=== PATIENT | female | born 1965 | race Caucasian/White ===

== ENCOUNTER 2022-06-30 13:07 | Outpatient (CLI) | payer BC, SELFPAY ==
--- NOTE | ~2022-06-30 | US_ITS ---
EXAMINATION: US retroperitoneal comp DATE: 06/30/2022 14:19 INDICATION: Chronic cystitis TECHNIQUE: Multiple ultrasound grayscale images of the kidneys were obtained. COMPARISON: None. FINDINGS: The right kidney measures 9.1 x 4.5 x 5.0 cm. The left kidney measures 9.9 x 4.5 x 6.2 cm. The kidney s demonstrate normal echogenicity. There is no hydronephrosis in either kidney. No stones identified . The bladder is normal with calculated prevoid bladder volume of 254 mL and normal calculated postvo id bladder volume of 22 mL. IMPRESSION: 1. Normal kidneys without hydronephrosis. Reviewed, dictated and finalized at location B.
== END 2022-06-30 13:08 | disposition home or self-care (01) ==
PROVIDERS: PCP Nurse Practitioner Family; Visit Provider Nurse Practitioner Family
DX: N30.20 Other chronic cystitis without hematuria (principal)
CPT/HCPCS: 76770

== ENCOUNTER 2023-03-29 15:17 | Outpatient (CLI) | payer BC, SELFPAY ==
--- NOTE | ~2023-03-29 | US_ITS ---
EXAMINATION: US art doppler w press LE BI DATE: 03/29/2023 16:08 INDICATION: Peripheral vascular disease. TECHNIQUE: Segmental pressures and plethysmographic and Doppler waveforms of the brachial and lower e xtremity arteries were obtained. COMPARISON: None. FINDINGS: Right and left brachial artery pressures of 124 mm Hg and 130 mm Hg, respectively, are concordant (no rmal difference <= 30 mmHg). The right and left high-thigh pressure indices are 1.05 and 0.99, respec tively (normal > 1.2). The right ankle-brachial index (AFUA) is 1.00 (normal >= 0.9-1). The right great toe-brachial index (T BI) is 0.42 (normal >= 0.6-0.8). The right lower extremity segmental pressure gradients are normal (n ormal gradients <= 20-30 mmHg between adjacent levels on the same leg or the same levels on the two l egs). Arterial waveforms are triphasic at the right common femoral artery and biphasic at the more di stal arteries with brisk systolic upstrokes throughout. The left AFUA is 0.98. The left TBI is 0.42. The left lower extremity segmental pressure gradients are normal. Arterial waveforms are triphasic at the left common femoral, superficial femoral, popliteal and dorsalis pedis arteries and biphasic at the left posterior tibial artery, all with brisk systolic upstrokes. IMPRESSION: 1. Arterial occlusive disease to bilateral lower limbs with mildly decreased bilateral high thigh pre ssure indices, ABIs and TBIs. Reviewed, dictated and finalized at location A. IMPRESSION: 1. 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
== END 2023-03-29 15:18 | disposition home or self-care (01) ==
PROVIDERS: PCP Nurse Practitioner Family; Visit Provider Podiatrist Foot & Ankle Surgery
DX: I73.9 Peripheral vascular disease, unspecified (principal)
CPT/HCPCS: 93923

== ENCOUNTER 2023-06-27 16:45 | Outpatient (RCR) | payer BC, SELFPAY ==
--- NOTE | 2023-06-27 17:56 | PTOPEVAL1 ---
Assessment and note entered by Salas Medina Evaluation Information Assessment Status Evaluation Diagnosis cervicalgia Onset 12/26/22 Subjective Information Pt. reports having 6 months of on/off neck pain. She describes pain down the middle of the neck. She reports that the pain mostly stays to the neck , but occasionally will go into the shoulder blades. She reports that her pain has worsened over the past 6 months. She notices frequent popping in the neck. 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 Pt. reports that she has pain with attempting to turn her head with driving. She reports that she can have headaches with the neck pain. She reports no complication with sleep. She states that her goal for therapy is to reduce her pain and improve her movement of the head and neck. Reported Pain Level Pain Score 3: Self Report Assessment PT Clinical Summary Pt. is a 58 year old female who enters the clinic with neck pain. she presents with impaired postural awareness, impaired strength, impaired ROM and pain on this date. Continued skilled PT is indicated in order to improve these areas to allow for improved comfort with IADL's. Plan of Care Interventions Electrical Stimulation,Hot Pack/Cold Pack,Manual Therapy,Mechanical Traction,Neuro Re-education, Patient/Caregiver Educati,Therapeutic Activities, Therapeutic Exercise PT Services Indicated Yes Treatment Frequency and 2x/week x 8 visits Duration These treatments will address the objective and functional deficits as defined above. The patient will be advanced safely and appropriately in order for the patient to progress towards his/her prior level of function. Additional exercises will be introduced and as well as a comprehensive home exercise program upon discharge, if needed, ?to ensure carryover of functional gains achieved in the clinic. This treatment plan has been reviewed and agreement upon by the patient.
--- NOTE | 2023-06-27 17:57 | OPREHPOC ---
Outpatient Therapy Plan of Care This is a Multidisciplinary Plan of Care that may contain components documented by all disciplines (PT, OT, and ST.) PT Problem 1 PT Problem #1 Knowledge Deficit PT Goal 1 Goal Independent with a HEP addressing c-spine ROM and postural awareness Target Visit 2 PT Problem 2 PT Problem #2 Impaired Range of Motion PT Goal 1 Goal Increase right rotation to 80 degrees at the c- spine and lateral flexion to the right to 40 degrees to improve visual field. Target Visit 8 PT Problem 3 PT Problem #3 Pain PT Goal 1 Goal Pt. will report pain levels at 2/10 at worst over a 2 week period. Target Visit 8 PT Problem 4 PT Problem #4 Impaired Strength PT Goal 1 Goal Increase lower trap strength to 4+/5 to improve postural awareness PT Problem 5 PT Problem #5 Impaired Functional Mobil PT Goal 1 Goal Pt. will present with less than 5% limitation on the NDI.
--- NOTE | 2024-04-10 15:37 | PCPTNOTE ---
Pt. attended her initial evaluation on 06/27/23. She failed to return to the clinic following initial evaluation and will be discharged from our care. Salas Medina, MPT
== END 2023-09-19 14:10 | disposition home or self-care (01) ==
LOC: ANHPT 16:45
PROVIDERS: PCP Nurse Practitioner Family
DX: M47.812 Spondylosis without myelopathy or radiculopathy, cervical region (principal)
CPT/HCPCS: 97014; 97110; 97140; 97161; G0283